=== PATIENT | male | born 1960 | race Caucasian/White ===

== ENCOUNTER 2017-04-01 10:47 | Emergency (ER) | payer OTHER ==
[~2017-04-01] VITALS: Ht 182.9 cm; Wt 87.7 kg
[2017-04-01] MEDS ORDERED: ERYTHROMYC1 APPLICAT RIGHT EYE (12:06)
[2017-04-01 12:18] VITALS: BP 154/87
== END 2017-04-01 12:19 | disposition home or self-care (01) ==
LOC: EME 10:47
PROC: 08C9XZZ Extirpation of Matter from Left Cornea, External Approach (ICD-10-PCS; principal; 2017-04-01)
DX: T15.02XA Foreign body in cornea, left eye, initial encounter (principal); X58.XXXA Exposure to other specified factors, initial encounter; Y93.89 Activity, other specified; Z86.718 Personal history of other venous thrombosis and embolism; Z86.711 Personal history of pulmonary embolism
CPT/HCPCS: 99281; 99284